=== PATIENT | female | born 1995 | race Caucasian/White ===

== ENCOUNTER 2017-01-19 13:14 | Emergency (ER) | payer MEDICAID ==
[~2017-01-19] VITALS: Ht 162.6 cm; Wt 79.4 kg
[2017-01-19 13:14] VITALS: BP 155/81; PULSE 72; RESP 16; TEMP 98.2; O2SAT 96
--- NOTE | 2017-01-19 13:14 | NUR ---
Patient to ER bed 5 to gown for evaluation. Side rails up. Report given to YAMILET ABEBE.
--- NOTE | 2017-01-19 13:55 | NUR ---
MD FATIMA AT BEDSIDE.
--- NOTE | 2017-01-19 14:26 | NUR ---
PATIENT TAKEN TO X-RAY, ESCORTED BY PANTOGRAPH I ENGRAVER.
[2017-01-19 15:12] VITALS: BP 113/76; PULSE 71; RESP 16; TEMP 98
--- NOTE | 2017-01-19 15:13 | NUR ---
Patient given written and verbal discharge instructions and verbalizes understanding. ER MD discussed with patient the results and treatment provided. Given copies of tests performed in ER. Patient in stable condition. ID arm band removed. Patient educated on pain management and to follow up with PMD. Pain Scale [0]. Opportunity for questions provided and answered.
[2017-01-19 15:38] VITALS: O2SAT 96
== END 2017-01-19 15:12 | disposition home or self-care (01) ==
LOC: SED 13:14
DX: R07.89 Other chest pain (principal)
CPT/HCPCS: 71020-TC; 81025; 93005; 99284

== ENCOUNTER 2017-11-25 22:19 | Emergency (ER) | payer MEDICAID ==
[~2017-11-25] VITALS: Ht 162.6 cm; Wt 79.4 kg
[2017-11-25 22:26] VITALS: BP_SYST 137
== END 2017-11-25 22:54 | disposition left against medical advice (07) ==
LOC: SED 22:19
DX: R10.30 Lower abdominal pain, unspecified (principal); R11.0 Nausea; Z85.41 Personal history of malignant neoplasm of cervix uteri; Z53.20 Procedure and treatment not carried out because of patient's decision for unspecified reasons
CPT/HCPCS: 99281